=== PATIENT | male | born 1960 | race Caucasian/White ===

== ENCOUNTER 2023-01-23 01:41 | Inpatient (IN) | payer OTHER, SELFPAY ==
[2023-01-23] VITALS (11 sets, daily range): BP systolic 93–137; BP diastolic 58–87; PULSE 88–110; RESP 14–22; TEMP 36.7–37.4; O2SAT 93–98; BMI 22.4
--- NOTE | 2023-01-23 01:23 | ECG_ITS ---
APPROVED REPORT Exam: Resting ECG HR:95 bpm ECG Measurements Heart Rate 95 AXES QRSd 87 QRS 89 QT 400 T 66 QTc 453 Conclusion ATRIAL FIBRILLATION ABNORMAL RHYTHM ECG UNCONFIRMED REPORT Electronically signed by : Manolo Mccormick MD 01/23/2023 08:26:41
--- NOTE | 2023-01-23 02:16 | EXP.HP ---
History of Present Illness *Admission Date: 01/23/23 *Reason for visit:: n/v *History of present illness: Patient is a 62 years old male with past medical history of tobacco abuse hypertension, alcohol use disorder, recently discharged from [place] at [place], alcohol detoxification. Since then patient relapsed into a 5 heart rate with daily, 1 to 2 days ago when he started nonbloody vomiting associated with retrosternal burning pain. History limited, since patient is a poor historian, by report patient was brought to [facility] ER by EMS after found him vomiting at home. Upon arrival patient underwent to extensive workup including lab work. Critical value of troponin reported. Patient improved from the vomiting standpoint. However, close elevated white count likely of 17 and 2 abnormal troponin. Cardiology was consulted. And transferred requested to our services for evaluation. [facility] Disclaimer: The information contained in this section may have been updated after the patient was seen, as this information can be updated by other users. Medical History (Updated 01/23/23 @ 18:20 by Chemo Quintanilla MD) Alcoholism Ankle fracture Gout HLD (hyperlipidemia) HTN (hypertension) Orthostatic hypotension Vitamin deficiency Social History (Updated 01/23/23 @ 02:15 by Willa Samson RN) Smoking Status: Never smoker alcohol intake: current current occupational status: retired Travel in the last 8 weeks: None Review of Systems Review of Systems Review of systems:: pertinent systems reviewed and negative unless documented below Meds Home Medications and Allergies Home Medications Medication Instructions Recorded Confirmed Type acetaminophen 325 mg tablet 325 mg PO Q6HP PRN Mild Pain 01/23/23 01/23/23 History (Scale Score 1-4) albuterol sulfate 90 mcg/actuation 2 inh inhalation Q6HP PRN 01/23/23 01/23/23 History breath activated powder inhaler Shortness Of Breath ascorbic acid (vitamin C) 250 mg 250 mg PO DAILY Vitamin deficiency 01/23/23 01/23/23 History tablet cetirizine 10 mg tablet 10 mg PO DAILY Allergy Symptoms 01/23/23 01/23/23 History cholecalciferol (vitamin D3) 25 25 mcg PO DAILY Supplement 01/23/23 01/23/23 History mcg (1,000 unit) tablet cyanocobalamin (vitamin B-12) 1,000 mcg PO DAILY Supplement 01/23/23 01/23/23 History 1,000 mcg tablet cyclobenzaprine 10 mg tablet 10 mg PO TIDP PRN Muscle spasms 01/23/23 01/23/23 History diclofenac sodium 1 % topical gel 2 g topical Q6HP PRN Pain 01/23/23 01/23/23 History ferrous sulfate 325 mg (65 mg 325 mg PO Q48H Supplement 01/23/23 01/23/23 History iron) tablet indomethacin 25 mg capsule 25 mg PO TID PRN Pain/inflammation 01/23/23 01/23/23 History magnesium oxide 420 mg tablet 420 mg PO BID Supplement 01/23/23 01/23/23 History omeprazole 20 mg capsule,delayed 20 mg PO DAILY Acid Reflux 01/23/23 01/23/23 History release thiamine HCl (vitamin B1) 100 mg 100 mg PO DAILY Supplement 01/23/23 01/23/23 History tablet trazodone 100 mg tablet 100 mg PO HSP PRN Sleep 01/23/23 01/23/23 History New Prescriptions to Start Prescriptions: Allergies Allergy/AdvReac Type Severity Reaction Status Date / Time acetaminophen Allergy Verified 01/23/23 04:06 [From Tylenol-Codeine] codeine Allergy Verified 01/23/23 04:06 [From Tylenol-Codeine] lisinopril Allergy Verified 01/23/23 04:03 Penicillins Allergy Verified 01/23/23 04:06 Exam Constitutional Constitutional: moderate distress and cooperative *Routine HEENT Exam Head: Present normocephalic and atraumatic Eye: Present EOMI and PERRL ENT: Present mucous membranes moist *Routine Neck Exam Neck: Present supple, full ROM and trachea midline *Routine Respiratory Exam Respiratory: Present normal respiratory effort, able to speak in complete sentences and symmetric chest movement *Routine Cardiovascular Exam Cardiovascular: Present RRR, Normal S1, Normal S2 and
--- NOTE | 2023-01-23 05:30 | PC.NURSE ---
Shift Summary: Pt AOx4, able to follow commands, standby assist. Denies any SOB, N/V, or chest pain. VSS, tolerating RA. Pt requiring multiple reeducation and explanations for NPO status. No acute events or issues at this time. Call light within reach, fall precautions implemented.
[2023-01-23 08:18] LABS: Basophils % 0.2 % (0.1-2.0); Hemoglobin 11.8 g/dL (14.1-18.0); Lymphocytes # 1.8 K/mm3 (0.7-4.5); Lymphocytes % 10.9 % (10-50); Mean Corpuscular Hemoglobin 33.5 pg (27.0-31.2); Mean Corpuscular Volume 104.7 fl (80-94); Mean Platelet Volume 9.8 fl (7.4-10.4); Monocytes # 0.9 K/mm3 (0.1-1.0); Monocytes % 5.6 % (1.7-9.3); Neutrophils # 13.4 K/mm3 (1.8-7.8); Neutrophils % 83.3 % (37.0-80.0); Platelet Count 118 K/mm3 (142-424); Red Blood Count 3.53 M/mm3 (4.60-6.20); Red Cell Distribution Width 16.9 % (11.5-17.5); White Blood Count 16.1 K/mm3 (4.8-10.8)
[2023-01-23 08:21] LABS: MANUAL DIFFERENTIAL MANUAL DIFFERENTIAL (MANUAL DIFF)
[2023-01-23 08:34] LABS: INR 1.24 (0.9-1.1); Prothrombin Time 13.2 seconds (10.1-12.5)
--- NOTE | 2023-01-23 08:46 | CA_ITS ---
APPROVED REPORT EXAM: Comprehensive 2D, Doppler, and color-flow Echocardiogram Marine Painter: STEPHANE Handley, RVS Ht: 5 ft 8 in Wt: 151lbs BSA: 1.81 BP: 98/70 mmHg Indications: Elevated troponin, ETOH abuse, NSTEMI 2D Dimensions Left Atrium 3.10 cm M: 3.0 - 4.0 LA Volume 64.70 mL LA Volume Index 35.929102 mL/m2 (M/F) 16-34 EF AP4 64.60 % GL Strain -18.1 % M-Mode Dimensions RVDd 2.25 cm (0.9-2.6) LA Diam 3.73 cm (1.9-4.0) LVDd 4.70 cm (3.5-5.7) LVDs 2.55 cm (3.5-5.7) IVSd 0.97 cm (0.6-1.1) PWd 0.84 cm (0.6-1.1) EF (Teich) 77.10% EPSs 0.71 cm FS 45.70% EDV (Teich) 102.40 mL ESV (Teich) 23.40 mL LV Diastology E Decel Time 63 (160-240 msec) E/A Ratio 1.29 MED A' 3.60 cm/s LAT A' 4.10 cm/s Aortic Valve CARLI Index 1.53 cm2/m2 AoV Peak Jonathon. 137.0 (50-130 cm/s) AO Peak GR. 7.50 mmHg AO Mean GR. 3.70 (<5 mmHg) AO VTI 22.8 (18-25 cm) CARLI (VTI) 2.85 (2.5-4.5 cm2) Mitral Valve MV A Velocity 83.0 (40-130 cm/s) E/A Ratio 1.29 Tricuspid Valve TR P. Velocity 285.00 cm/s RAP Estimate 10.00 mmHg RVSP 42.50 mmHg Left Ventricle The left ventricle is normal size. The left ventricular systolic function is normal. The left ventricular ejection fraction is within the normal range. There is normal left ventricular wall thickness. There is normal LV segmental wall motion. The left ventricular diastolic function is normal. LVEF is 55%. Right Ventricle The right ventricle is normal size. The right ventricular systolic function is normal. Atria The left atrium size is normal. The right atrium size is normal. There is no Doppler evidence of interatrial shunt. Aortic Valve The aortic valve is normal in structure. The aortic valve is trileaflet. There is no aortic valvular stenosis. No aortic regurgitation is present. Mitral Valve The mitral valve is normal in structure. No evidence of mitral valve stenosis. Mild mitral regurgitation. Tricuspid Valve The tricuspid valve leaflets are thin and pliable. Mild tricuspid regurgitation. RVSP is 30-35 mmHg. Pulmonic Valve The pulmonary valve is normal in structure. Trace pulmonic regurgitation. Great Vessels The aortic root is normal in size. The ascending aorta is normal in size. IVC is normal in size and collapses >50% with inspiration. Pericardium There is no pericardial effusion. Other Information Study Quality: Adequate Conclusion Normal biventricular systolic function. Mild MR, mild TR. RVSP 30-35 mmHg. Electronically signed by : Makenzie Sneed MD 01/23/2023 22:17:17
[2023-01-23 08:54] LABS: Troponin I 0.77 ng/ml (0.00-0.034)
[2023-01-23 09:08] LABS: Lymphocytes % 10 % (10-50); Monocytes % 8 % (2-9); Neutrophils % 79 % (42-76); Nucleated Red Blood Cells 3; Platelet Estimate Slight Decrease; Total Cells Counted 100
[2023-01-23 09:09] LABS: Chloride 100 mmol/L (98-107); RBC Morphology Normal; Sodium 137 mmol/L (136-145)
--- NOTE | 2023-01-23 09:09 | ECG_ITS ---
APPROVED REPORT Exam: Resting ECG HR:97 bpm ECG Measurements Heart Rate 97 AXES OH 159 P 261 QRSd 87 QRS 76 QT 384 T 76 QTc 438 Conclusion SINUS RHYTHM MODERATE ST DEPRESSION [0.05+ mV ST DEPRESSION] ABNORMAL ECG UNCONFIRMED REPORT Electronically signed by : Manolo Mccormick MD 01/24/2023 09:59:06
[2023-01-23 09:10] LABS: Potassium 3.6 mmoL/L (3.5-5.1)
[2023-01-23 09:12] LABS: Alanine Aminotransferase 48 U/L (12-78); Albumin Level 3.4 g/dl (3.5-5.0); Albumin/Globulin Ratio 1.4 (1.1-1.8); Alkaline Phosphatase 133 U/L (38-126); Anion Gap 14.6 mEq/L (5-15); Aspartate Amino Transferase 115 U/L (17-59); Bilirubin,Total 1.4 mg/dl (0.2-1.3); Blood Urea Nitrogen 9 mg/dl (9-20); Calcium 6.5 mg/dl (8.4-10.2); Carbon Dioxide 26 mmol/L (22.0-30.0); Creatinine Clearance Estimated 75 mL/min (50-200); Estimated Glomerular Filt Rate 86 ml/min (>60); GFR (African American) 103 ML/MIN (>60); Globulin 2.4 g/dL (1.3-3.2); Glucose 218 mg/dl (74-100); Total Protein,Serum 5.8 g/dl (6.3-8.2)
[2023-01-23 09:13] LABS: Magnesium 1.2 mg/dl (1.6-2.3)
--- NOTE | 2023-01-23 09:23 | PC.NURSE ---
Lab and US in room at present. Echo currently in progress
--- NOTE | 2023-01-23 09:26 | EXP.CARD.CON ---
History of Present Illness History of Present Illness Consult date: 01/23/23 Requesting physician: Chemo Quintanilla Chief complaint: Nausea vomiting diarrhea History of present illness: 62-year-old white male with past medical history of daily alcohol consumption reports drinks 1/5 of vodka daily and hypertension presented to [facility] emergency department with complaints of 3 days of nausea vomiting diarrhea and generalized weakness. Patient reports he was recently discharged from the [facility] in [place] out after alcohol detox. Upon presentation to [facility] patient had 2 elevated troponins and was sent [facility] for [facility]ology evaluation. This morning patient reports he has a burning sensation in his chest that feels like heartburn. Denies chest pressure, shortness of air or lower extremity edema. Morning labs as follow: WBC 16.1, hemoglobin 11.8, platelet count 118, sodium 137, potassium 3.6, creatinine 0.9, magnesium 1.2, total bili 1.4, AST 115, ALT 48, alk phos 133. First troponin 0.77. EKG is currently sinus tach at a rate of 95 without acute ischemic changes noted. Echocardiogram is pending. [facility] Disclaimer: The information contained in this section may have been updated after the patient was seen, as this information can be updated by other users. Medical History (Updated 01/23/23 @ 06:25 by [place] APRN) Alcoholism Ankle fracture Gout HLD (hyperlipidemia) HTN (hypertension) Orthostatic hypotension Vitamin deficiency Social History (Updated 01/23/23 @ 02:15 by Willa Samson RN) Smoking Status: Never smoker alcohol intake: current current occupational status: retired Travel in the last 8 weeks: None Review of Systems Review of Systems Review of systems:: pertinent systems reviewed and negative unless documented below Constitutional Constitutional: Reports weakness *Gastrointestinal Gastrointestinal: Reports vomiting Comments: Diarrhea *Neurologic Neurologic: Reports weakness Exam Data for Last 24 hours Vital signs and Labs for Last 24 Hours: Temp Pulse Resp BP Pulse Ox O2 Del Method 99.4 F 100 H 20 95/58 L 95 Room Air 01/23/23 08:00 01/23/23 06:00 01/23/23 06:00 01/23/23 06:00 01/23/23 06:00 01/23/23 06:45 Laboratory Results - last 24 hr 01/23/23 06:55: Troponin I 0.77 H 01/23/23 07:46: WBC 16.1 H, RBC 3.53 L, Hgb 11.8 L, Hct 37.0 L, MCV 104.7 H, MCH 33.5 H, MCHC 32.0, RDW 16.9, Plt Count 118 L, MPV 9.8, Neut % (Auto) 83.3 H, Lymph % (Auto) 10.9, [place] % (Auto) 5.6, Eos % (Auto) 0.0 L, Baso % (Auto) 0.2, Neut # (Auto) 13.4 H, Lymph # (Auto) 1.8, [place] # (Auto) 0.9, Eos # (Auto) 0.0, Baso # (Auto) 0.0, Total Counted 100, Neutrophils % (Manual) 79 H, Lymphocytes % (Manual) 10, Monocytes % (Manual) 8, Metamyelocytes % 3.0 H, Nucleated RBCs 3, Platelet Estimate Slight decrease, RBC Morphology Normal, PT 13.2 H, INR 1.24 H, Sodium 137, Potassium 3.6, Chloride 100, Carbon Dioxide 26, Anion Gap 14.6, BUN 9, Creatinine 0.90, Estimated Creat Clear 75, Estimated GFR 86, Est GFR ( Amer) 103, Glucose 218 H, Calcium 6.5 L, Magnesium 1.2 L, Total Bilirubin 1.4 H, AST 115 H, ALT 48, Alkaline Phosphatase 133 H, Total Protein 5.8 L, Albumin 3.4 L, Globulin 2.4, Albumin/Globulin Ratio 1.4 I & O for Last 24 hours: Intake & Output 01/20/23 01/21/23 01/22/23 01/23/23 23:59 23:59 23:59 23:59 Intake Total 0 / 0 Output Total 0 / 0 Balance 0 / 0 Weight 151 lb 14.376 oz Constitutional Constitutional: no acute distress *Routine Respiratory Exam Respiratory: Present CTA bilaterally and symmetric chest movement *Routine Cardiovascular Exam Cardiovascular: Present RRR, Normal S1 and Normal S2 *Routine Abdominal Exam Abdominal: Present soft and normoactive bowel sounds; Absent tenderness *Routine Extremities Exam Extremities: Present full ROM and normal capillary refill; Absent edema *Routine Skin Exam Skin: Present
--- NOTE | 2023-01-23 09:53 | HMH.PHAINT1 ---
Pharmacy Intervention Comments: MEDICATION RECONCILIATION COMPLETED ON PATIENT USING LIST FROM [place] AND PATIENT INTERVIEW. [place]S FROM [facility] ARE [place]IST[place] , HOWEVER UPON INTERVIEW PATIENT STATES HE TAKES THESE MEDICATIONS. PATIENT STATED THAT HE HAS A HUGE BOX OF MEDICATIONS THAT HE RECEIVES THROUGH THE MAIL FROM THE [place]. -SKY DEAN, CARLOS
[2023-01-23 11:12] LABS: Troponin I 0.87 ng/ml (0.00-0.034)
[2023-01-23 12:38] LABS: Hemoglobin A1C 4.7 % (4.0-6.0)
[2023-01-23 14:33] LABS: Reflex Lactic Add Lactic Reflex
--- NOTE | 2023-01-23 15:07 | CARE MANAGER ---
Spoke with [place] transfer office this morning and confirmed no bed availability. Spoke with patient's PCP's nurse at [place] this afternoon regarding appointment with cardiology. Patient will likely have to see PCP first, but sent some clinical information in order to hopefully get patient into cardiology quicker. He states he will schedule appointment and contact patient but cannot guarantee when appointments will be. AJ Kyle
[2023-01-23 15:27] LABS: Lactic Acid Follow Up (RFLX 1) 4.2 mmol/L (0.7-2.1)
[2023-01-23 17:09] LABS: Reflex Lactic (2 hrs) Add Lactic Reflex
[2023-01-23 18:09] LABS: Lactic Acid Follow up (RFLX 2) 4.7 mmol/L (0.7-2.1)
--- NOTE | 2023-01-23 18:19 | EXP.SEPSISRE ---
[facility] Tissue Perfusion Eval Sepsis Re-Evaluation Performed: Yes Date Performed: 01/23/23 Time Performed: 07:30
--- NOTE | 2023-01-23 19:00 | PC.NURSE ---
Dr. Quintanilla notified of lactate increasing. Patient has no clinical symptoms of decline, or worseing of illness. Dr. Quintanilla requested to stop lactate serial lab in less patient had a clinical change. Lab notified.
[2023-01-24] VITALS (12 sets, daily range): BP systolic 90–132; BP diastolic 62–89; PULSE 73–107; RESP 16–22; TEMP 36.6–37.2; O2SAT 90–97; BMI 22.7
--- NOTE | 2023-01-24 05:11 | PC.NURSE ---
Patient has rested well this shift with no c/o nausea or diarrhea. Patients lungs are clear to auscultation, respirations are even and unlabored, oxygen has maintained > 90% on room air. Bowel sounds active X 4. No c/o pain or discomfort. Patient has been sinus rhythm on tele, vitals have been stable. LR fluids remain infusing at 125 ml/hr no s/sx of IV complications. Patient is able to ambulate to bathroom independently. Call loza, water pitcher, personal belongings and bed side table all with in reach.
[2023-01-24 12:42] LABS: Basophils % 0.1 % (0.1-2.0); Eosinophils % 0.2 % (0.1-12.0); Hematocrit 35.8 % (42.0-52.0); Hemoglobin 11.8 g/dL (14.1-18.0); Lymphocytes # 2.2 K/mm3 (0.7-4.5); Lymphocytes % 20.4 % (10-50); Mean Corpuscular HGB Conc 32.9 g/dL (31.8-35.4); Mean Corpuscular Hemoglobin 33.9 pg (27.0-31.2); Mean Corpuscular Volume 103.2 fl (80-94); Mean Platelet Volume 10.6 fl (7.4-10.4); Monocytes # 0.4 K/mm3 (0.1-1.0); Neutrophils # 8.2 K/mm3 (1.8-7.8); Neutrophils % 75.3 % (37.0-80.0); Platelet Count 83 K/mm3 (142-424); Red Blood Count 3.47 M/mm3 (4.60-6.20); Red Cell Distribution Width 17.2 % (11.5-17.5); White Blood Count 10.9 K/mm3 (4.8-10.8)
[2023-01-24 12:48] LABS: Chloride 102 mmol/L (98-107)
[2023-01-24 12:49] LABS: Sodium 138 mmol/L (136-145)
[2023-01-24 12:51] LABS: Alanine Aminotransferase 44 U/L (12-78); Aspartate Amino Transferase 110 U/L (17-59); Blood Urea Nitrogen 4 mg/dl (9-20); Creatinine Clearance Estimated 76 mL/min (50-200); Estimated Glomerular Filt Rate 114 ml/min (>60); GFR (African American) 138 ML/MIN (>60)
[2023-01-24 12:52] LABS: Albumin/Globulin Ratio 1.2 (1.1-1.8); Alkaline Phosphatase 113 U/L (38-126); Bilirubin,Total 1.1 mg/dl (0.2-1.3); Calcium 7.3 mg/dl (8.4-10.2); Carbon Dioxide 32 mmol/L (22.0-30.0); Globulin 2.5 g/dL (1.3-3.2); Glucose 113 mg/dl (74-100); Magnesium 1.4 mg/dl (1.6-2.3); Total Protein,Serum 5.5 g/dl (6.3-8.2)
[2023-01-24 12:53] LABS: Anion Gap 7.2 mEq/L (5-15); Potassium 3.2 mmoL/L (3.5-5.1)
--- NOTE | 2023-01-24 15:22 | PC.NURSE ---
Pt has appeared to have had a good day and was able to rest in his room. he is alert and oriented x 3. slightly confused as to the length of his stay. pt is insistent that he has been at [facility] for 4 days. pt calls for assistance to the restroom appropriately. lungs are clear throughout, bowel sounds are active in all quads. pt denies chest pain at this time and denies having had any chest pain this shift thus far. nad noted. pt ambulates with standby of 1 person r/t iv pole.
[2023-01-25] VITALS (11 sets, daily range): BP systolic 109–135; BP diastolic 71–94; PULSE 72–104; RESP 16–22; TEMP 36.4–36.7; O2SAT 96–99; BMI 22.7
--- NOTE | 2023-01-25 06:25 | PC.NURSE ---
Patient has used the restroom multiple times this shift. Patient would request for IV to be paused and unhooked d/t location of IV. Staff called and notified me while in the room waiting for patient to finish using the restroom, that patients heart rate is in the 130's. Patient assessed at time when notified via staff. Patient denied SOB, Chest Pain or notable palpitations. Non-pitting edema noted to RLE. Patient stated to typewriter repairer that he has urinated more tonight then he ever has. Patient continues to state that his RLE looks much better and not so swollen .
[2023-01-25 07:42] LABS: Chloride 104 mmol/L (98-107); Sodium 139 mmol/L (136-145)
[2023-01-25 07:45] LABS: Alanine Aminotransferase 33 U/L (12-78); Albumin Level 2.7 g/dl (3.5-5.0); Albumin/Globulin Ratio 1.1 (1.1-1.8); Alkaline Phosphatase 109 U/L (38-126); Aspartate Amino Transferase 114 U/L (17-59); Bilirubin,Total 0.9 mg/dl (0.2-1.3); Blood Urea Nitrogen 4 mg/dl (9-20); Carbon Dioxide 34 mmol/L (22.0-30.0); Creatinine Clearance Estimated 76 mL/min (50-200); Estimated Glomerular Filt Rate 137 ml/min (>60); GFR (African American) 165 ML/MIN (>60); Globulin 2.4 g/dL (1.3-3.2); Glucose 79 mg/dl (74-100); Total Protein,Serum 5.1 g/dl (6.3-8.2)
[2023-01-25 07:46] LABS: Calcium 7.1 mg/dl (8.4-10.2)
[2023-01-25 07:56] LABS: Anion Gap 3.6 mEq/L (5-15); Potassium 2.6 mmoL/L (3.5-5.1)
[2023-01-25 09:08] LABS: Basophils % 0.3 % (0.1-2.0); Eosinophils # 0.1 K/mm3 (0.0-0.4); Eosinophils % 0.7 % (0.1-12.0); Hematocrit 31.6 % (42.0-52.0); Hemoglobin 10.7 g/dL (14.1-18.0); Lymphocytes # 2.1 K/mm3 (0.7-4.5); Lymphocytes % 29.7 % (10-50); Mean Corpuscular HGB Conc 33.9 g/dL (31.8-35.4); Mean Corpuscular Hemoglobin 34.8 pg (27.0-31.2); Mean Corpuscular Volume 102.7 fl (80-94); Monocytes # 0.3 K/mm3 (0.1-1.0); Monocytes % 3.8 % (1.7-9.3); Neutrophils # 4.7 K/mm3 (1.8-7.8); Neutrophils % 65.6 % (37.0-80.0); Platelet Count 64 K/mm3 (142-424); Red Blood Count 3.08 M/mm3 (4.60-6.20); Red Cell Distribution Width 16.8 % (11.5-17.5); White Blood Count 7.2 K/mm3 (4.8-10.8)
--- NOTE | 2023-01-25 09:48 | PC.NURSE ---
Late entry- 0945 notified by presiding steward pt HR in 130s, this RN in room with different pt at this time, paged another nurse to check on pt, AJ Laboy went in and pt was confused, could only tell name and date of . AJ Laboy paged , came to bedside to assess, new orders received and carried out.
--- NOTE | 2023-01-25 09:55 | CT_ITS ---
PROCEDURE INFORMATION: Exam: CT Head Without Contrast Exam date and time: 01/25/2023 12:01 PM Age: 62 years old Clinical indication: Altered mental status/memory loss; Additional info: Transient confusion TECHNIQUE: Imaging protocol: Computed tomography of the head without contrast. Radiation optimization: All CT scans at this facility use at least one of these dose optimization techniques: automated exposure control; mA and/or kV adjustment per patient size (includes targeted exams where dose is matched to clinical indication); or iterative reconstruction. REPORTING DATA: Count of CT and Cardiac NM exams in prior 12 months: This patient has received 0 known CTs and 0 known cardiac nuclear medicine studies in the 12 months prior to the current study. COMPARISON: No relevant prior studies available. FINDINGS: Brain: There is no evidence of acute intracranial hemorrhage, extra-axial collection or locoregional mass effect. There are scattered hypodensities in the periventricular and subcortical white matter. The appearance is nonspecific, but most likely represents chronic small vessel disease in a person of this age Cerebral ventricles: The ventricles, sulci and cisterns are normal in size and configuration. No hydrocephalus or midline structure shift Pituitary gland and sella: Sellar/parasellar structures, craniocervical junction and orbits are unremarkable Paranasal sinuses: Visualized sinuses are unremarkable. No fluid levels. Mastoid air cells: Visualized mastoid air cells are well aerated. Bones/joints: No calvarial fracture Soft tissues: Unremarkable. IMPRESSION: 1. No acute intracranial abnormality. No calvarial fracture. 2. If focal neurological symptoms persist brain MRI can be obtained for better evaluation
[2023-01-25 10:50] LABS: Troponin I 0.07 ng/ml (0.00-0.034)
[2023-01-25 10:51] LABS: Lactic Acid 3.8 mmol/L (0.7-2.1)
[2023-01-25 12:41] LABS: Appearance,Urine CLEAR (Clear); Bilirubin,Urine Negative (Negative); Blood, Urine Negative (Negative); Color,Urine YELLOW (Yellow); Glucose,Urine (UA) Negative (Negative); Ketones,Urine Negative (Negative); Leukocyte Esterase,Urine Negative (Negative); Nitrate,Urine Negative (Negative); Protein,Urine Negative (Negative); Specific Gravity, Urine 1.015 (1.005-1.030); Urobilinogen,Urine 0.2 EU/dl (0.2)
[2023-01-25 12:43] LABS: Microscopic, Urine URINE MICROSCOPIC (MICROSCOPIC)
[2023-01-25 12:44] LABS: Squamous Epithelial Cell,Urine Occasional #/hpf (0-5); WBC,Urine Occasional #/hpf (0-3)
--- NOTE | 2023-01-25 14:05 | ECG_ITS ---
APPROVED REPORT Exam: Resting ECG HR:112 bpm ECG Measurements Heart Rate 112 AXES [place] 153 P 26 QRSd 93 QRS 84 QT 360 T 57 QTc 426 Conclusion SINUS TACHYCARDIA ABNORMAL RHYTHM ECG UNCONFIRMED REPORT Electronically signed by : Manolo Mccormick MD 01/26/2023 19:19:24
--- NOTE | 2023-01-25 14:08 | PC.NURSE ---
Called by fish warden at 1352 pt HRs in 120s. Walked in room, pt only alert to name and birthday, pt could not state where he was. Pt trying to get out of bed, ask pt to sit back in bed. Paged Brittany ROCHA to come and assess pt. Pt was diaphoretic, mouth twitching, and pale. Pt could not express what he needed and not speaking clearly. MD mariana MD to bedside, new orders received and carried out. Bed alarm on, seizures pads in place.
[2023-01-25 14:42] LABS: Reflex Lactic Add Lactic Reflex
[2023-01-25 15:32] LABS: Lactic Acid Follow Up (RFLX 1) 2.5 mmol/L (0.7-2.1)
--- NOTE | 2023-01-25 15:37 | EXP.PN ---
Subjective *Date: 01/24/23 *Time: 15:37 Exam Data for Last 24 hours Vital signs and Labs for Last 24 Hours: Temp Pulse Resp BP Pulse Ox O2 Del Method 98.1 F 104 H 18 134/71 96 Room Air 01/25/23 15:15 01/25/23 15:15 01/25/23 15:15 01/25/23 15:15 01/25/23 15:15 01/25/23 15:15 Laboratory Results - last 24 hr 01/25/23 06:40: WBC 7.2 D, RBC 3.08 L, Hgb 10.7 L, Hct 31.6 L, MCV 102.7 H, MCH 34.8 H, MCHC 33.9, RDW 16.8, Plt Count 64 L, MPV 10.0, Neut % (Auto) 65.6, Lymph % (Auto) 29.7, [place] % (Auto) 3.8, Eos % (Auto) 0.7, Baso % (Auto) 0.3, Neut # (Auto) 4.7, Lymph # (Auto) 2.1, [place] # (Auto) 0.3, Eos # (Auto) 0.1, Baso # (Auto) 0.0, Sodium 139, Potassium 2.6 L*, Chloride 104, Carbon Dioxide 34 H, Anion Gap 3.6 L, BUN 4 L, Creatinine 0.60 L, Estimated Creat Clear 76, Estimated GFR 137, Est GFR ( Amer) 165, Glucose 79 D, Calcium 7.1 L, Total Bilirubin 0.9, AST 114 H, ALT 33, Alkaline Phosphatase 109, Total Protein 5.1 L, Albumin 2.7 L, Globulin 2.4, Albumin/Globulin Ratio 1.1 01/25/23 10:18: Lactate 3.8 H, Troponin I 0.07 H 01/25/23 12:44: Urine Color Yellow, Urine Appearance Clear, Urine pH 8.0, Ur Specific Ledbetter 1.015, Urine Protein Negative, Urine Glucose (UA) Negative, Urine Ketones Negative, Urine Blood Negative, Urine Nitrate Negative, Urine Bilirubin Negative, Urine Urobilinogen 0.2, Ur Leukocyte Esterase Negative, Urine RBC None, Urine WBC Occasional, Ur Squamous Epith Cells Occasional, Urine Bacteria None 01/25/23 15:00: Lactate 2.5 H I & O for Last 24 hours: Intake & Output 12/07/23 12/08/23 12/09/23 12/10/23 23:59 23:59 23:59 23:59 Intake Total 1439 3828 / 4068 690 / 690 Output Total 0 / 0 1500 / 1500 200 / 200 Balance 1439 2328 / 2568 490 / 490 Weight 68.9 kg 69.717 kg 69.7 kg Assessment and Plan *Assessment and plan (1) Septic shock: Status: Acute Category: Medical Code(s): A41.9 - Sepsis, unspecified organism; R65.21 - Severe sepsis with septic shock (2) Elevated troponin: Status: Acute Category: Medical Code(s): R79.89 - Other specified abnormal findings of blood chemistry (3) Leukocytosis: Status: Acute Qualifiers: Leukocytosis type: unspecified Qualified Code(s): D72.829 - Elevated white blood cell count, unspecified Category: Medical Code(s): D72.829 - Elevated white blood cell count, unspecified (4) HTN (hypertension): Status: Acute Qualifiers: Hypertension type: unspecified Qualified Code(s): I10 - Essential (primary) hypertension Category: Medical Code(s): I10 - Essential (primary) hypertension (5) HLD (hyperlipidemia): Status: Acute Qualifiers: Hyperlipidemia type: unspecified Qualified Code(s): E78.5 - Hyperlipidemia, unspecified Category: Medical Code(s): E78.5 - Hyperlipidemia, unspecified (6) Gout: Status: Acute Qualifiers: Gout site: multiple sites Gout etiology: unspecified cause Chronicity: chronic Qualified Code(s): M1A.09X0 - Idiopathic chronic gout, multiple sites, without tophus (tophi) Category: Medical Code(s): M10.9 - Gout, unspecified (7) Alcoholism: Status: Acute Category: Medical Code(s): F10.20 - Alcohol dependence, uncomplicated Plan 62 years old male with past medical history of tobacco abuse hypertension, alcohol use disorder, recently discharged from [place] at [place], alcohol detoxification. Since then patient relapsed into a 5 heart rate with daily, 1 to 2 days ago when he started nonbloody vomiting associated with retrosternal burning pain. -Septic shock - improved -Elevated troponin to rule ACS: continue IV abx with levaquin -Leukocytosis: Unclear source of infection, clinical simple enteritis. CT of the abdomen reviewed. Findings are nonspecific for ileus. However symptomatically there is no support. Patient tolerating eating
--- NOTE | 2023-01-25 15:48 | EXP.PN ---
Subjective *Date: 01/25/23 *Time: 15:48 Interval history: patient was seen and evaluated at the bedside. he had starring episode x 2, and not responding to conversations. denies chest pain, shortness of breath, nausea, vomiting, abdominal pain. Exam Data for Last 24 hours Vital signs and Labs for Last 24 Hours: Temp Pulse Resp BP Pulse Ox O2 Del Method 98.1 F 104 H 18 134/71 96 Room Air 01/25/23 15:15 01/25/23 15:15 01/25/23 15:15 01/25/23 15:15 01/25/23 15:15 01/25/23 15:15 Laboratory Results - last 24 hr 01/25/23 06:40: WBC 7.2 D, RBC 3.08 L, Hgb 10.7 L, Hct 31.6 L, MCV 102.7 H, MCH 34.8 H, MCHC 33.9, RDW 16.8, Plt Count 64 L, MPV 10.0, Neut % (Auto) 65.6, Lymph % (Auto) 29.7, Dewey % (Auto) 3.8, Eos % (Auto) 0.7, Baso % (Auto) 0.3, Neut # (Auto) 4.7, Lymph # (Auto) 2.1, Dewey # (Auto) 0.3, Eos # (Auto) 0.1, Baso # (Auto) 0.0, Sodium 139, Potassium 2.6 L*, Chloride 104, Carbon Dioxide 34 H, Anion Gap 3.6 L, BUN 4 L, Creatinine 0.60 L, Estimated Creat Clear 76, Estimated GFR 137, Est GFR ( Amer) 165, Glucose 79 D, Calcium 7.1 L, Total Bilirubin 0.9, AST 114 H, ALT 33, Alkaline Phosphatase 109, Total Protein 5.1 L, Albumin 2.7 L, Globulin 2.4, Albumin/Globulin Ratio 1.1 01/25/23 10:18: Lactate 3.8 H, Troponin I 0.07 H 01/25/23 12:44: Urine Color Yellow, Urine Appearance Clear, Urine pH 8.0, Ur Specific [place] 1.015, Urine Protein Negative, Urine Glucose (UA) Negative, Urine Ketones Negative, Urine Blood Negative, Urine Nitrate Negative, Urine Bilirubin Negative, Urine Urobilinogen 0.2, Ur Leukocyte Esterase Negative, Urine RBC None, Urine WBC Occasional, Ur Squamous Epith Cells Occasional, Urine Bacteria None 01/25/23 15:00: Lactate 2.5 H I & O for Last 24 hours: Intake & Output 01/22/23 01/23/23 01/24/23 01/25/23 23:59 23:59 23:59 23:59 Intake Total 1439 3828 / 4068 690 / 690 Output Total 0 / 0 1500 / 1500 200 / 200 Balance 1439 2328 / 2568 490 / 490 Weight 68.9 kg 69.717 kg 69.7 kg Constitutional Constitutional: no acute distress *Routine HEENT Exam Head: Present normocephalic Eye: Present EOMI and PERRL ENT: Present mucous membranes moist *Routine Neck Exam Neck: Present supple; Absent lymphadenopathy *Routine Respiratory Exam Respiratory: Present CTA bilaterally *Routine Cardiovascular Exam Cardiovascular: Present RRR *Routine Abdominal Exam Abdominal: Present soft and normoactive bowel sounds; Absent tenderness *Routine Extremities Exam Extremities: Absent cyanosis, clubbing or edema *Routine Skin Exam Skin: Present warm; Absent rash *Routine Neurological Exam Neurological: Present alert and oriented X3 Assessment and Plan *Assessment and plan (1) Septic shock: Status: Acute Category: Medical Code(s): A41.9 - Sepsis, unspecified organism; R65.21 - Severe sepsis with septic shock (2) Elevated troponin: Status: Acute Category: Medical Code(s): R79.89 - Other specified abnormal findings of blood chemistry (3) Leukocytosis: Status: Acute Qualifiers: Leukocytosis type: unspecified Qualified Code(s): D72.829 - Elevated white blood cell count, unspecified Category: Medical Code(s): D72.829 - Elevated white blood cell count, unspecified (4) HTN (hypertension): Status: Acute Qualifiers: Hypertension type: unspecified Qualified Code(s): I10 - Essential (primary) hypertension Category: Medical Code(s): I10 - Essential (primary) hypertension (5) HLD (hyperlipidemia): Status: Acute Qualifiers: Hyperlipidemia type: unspecified Qualified Code(s): E78.5 - Hyperlipidemia, unspecified Category: Medical Code(s): E78.5 - Hyperlipidemia, unspecified (6) Gout: Status: Acute Qualifiers: Gout site: multiple sites Gout etiology: unspecified cause Chronicity: chronic Qualified Code(s): M1A.09X0 - Idiopathic chronic gout, m
[2023-01-25 15:54] LABS: Troponin I 0.06 ng/ml (0.00-0.034)
--- NOTE | 2023-01-25 16:54 | PC.NURSE ---
Rapid Response called at this time
[2023-01-25 17:15] LABS: Reflex Lactic (2 hrs) Add Lactic Reflex
--- NOTE | 2023-01-25 17:20 | PC.NURSE ---
paged michele for a loading dose of keppra per mjeed. per vamshi admin 1500mg loading dose in 100ml bad ns over 15 mins now, no need for drip after loading dose.
[2023-01-25 17:51] LABS: Creatine Kinase 63 U/L (55-170)
[2023-01-25 17:55] LABS: Lactic Acid 4.7 mmol/L (0.7-2.1)
--- NOTE | 2023-01-25 18:23 | CARE MANAGER ---
[facility] and no beds available for transfer. AJ Kyle
--- NOTE | 2023-01-25 19:17 | PC.NURSE ---
1649- pt bed alarm goes off, rn cherie walks in, this rn goes behind her, pt is trying to get out of bed, pt begins stiffening up and lays back into the bed, pt is unresponsive 1652- rapid response called, charge nurse present at bedside, 2L NC applied, mouth suctioned 1653- MD Cervantes, tracie, adolfo, eladio RT, zoey RT all present at bedside, pt rolled to left side 1655- orders for ativan 2mg and keppra received, ativan given, awaiting call from pharmacy for dose for keppra 1657- vitals obtained, BP 127/83, P 72, R 22, O2 96 on 2L 1699- Pt more responsive, but still lethargic, CK and lactic ordered 1701- pt noted to be asleep and snoring, pt left on continuous monitoring 1704- BP 109/75, P 88, R 22, O2 98 on 2L
--- NOTE | 2023-01-25 19:47 | PC.NURSE ---
report called to [facility] @ this time
--- NOTE | 2023-01-25 21:05 | PC.NURSE ---
EMS here for transport
--- NOTE | 2023-01-25 21:17 | PC.NURSE ---
Pt left 2nd floor with EMS personnel at this time.
--- NOTE | 2023-01-25 21:18 | PC.NURSE ---
pt transfered out to [facility] via ambulance @21:15
--- NOTE | 2023-01-25 21:24 | PC.NURSE ---
Patient left facility at 2115 via stretcher, patient is being transported to [facility] per order. [facility] Lab Technician spoke to daughter at time of patient being transferred from bed to stretcher. Family aware of patient being transferred to [facility]. Report given to EMS. [place] RN called report to RN at [facility].
--- NOTE | 2023-01-26 20:07 | EXP.DC.SUM ---
General Admission date:: 01/23/23 Discharge date: 01/25/23 HPI HPI HPI: Patient is a 62 years old male with past medical history of tobacco abuse hypertension, alcohol use disorder, recently discharged from [facility] at [facility], alcohol detoxification. Since then patient relapsed into a 5 heart rate with daily, 1 to 2 days ago when he started nonbloody vomiting associated with retrosternal burning pain. History limited, since patient is a poor historian, by report patient was brought to [facility] ER by EMS after found him vomiting at home. Upon arrival patient underwent to extensive workup including lab work. Critical value of troponin reported. Patient improved from the vomiting standpoint. However, close elevated white count likely of 17 and 2 abnormal troponin. Cardiology was consulted. And transferred requested to our services for evaluation. Hospital Course Hospital Course Hospital Course: Patient was seen and evaluated at the bedside on the day of discharge. Patient is stable for discharge. Patient wishes to be discharged. All patient questions were answered and patient was given time to ask questions. Patient was discharged in stable condition. Patient understands that she can return to ER in case of any sudden changes in health. Total time spent on DC - 38 mins 62 years old male with past medical history of tobacco abuse hypertension, alcohol use disorder, recently discharged from [facility] at [facility], alcohol detoxification. Since then patient relapsed into a 5 heart rate with daily, 1 to 2 days ago when he started nonbloody vomiting associated with retrosternal burning pain. -Septic shock - improved seizures appears to have absent seizures CT head negative seizure precuations will initiate transfer to neurology service facility -Hypertension hyperlipidemia: Resume home. Record requested from [facility]. -History of gout: On allopurinol. -Alcoholism: stable Full code. Lovenox for DVT prophylaxis. PPI for GI bleed prophylaxis Exam Data for Last 24 hours Vital signs and Labs for Last 24 Hours: Temp Pulse Resp BP Pulse Ox O2 Del Method O2 Flow Rate 97.5 F L 95 H 18 116/76 99 Room Air 2 01/25/23 20:00 01/25/23 20:00 01/25/23 20:00 01/25/23 20:00 01/25/23 20:00 01/25/23 21:00 01/25/23 19:00 I & O for Last 24 hours: Intake & Output 01/23/23 01/24/23 01/25/2323 23:59 23:59 23:59 23:59 Intake Total 1439 3828 / 4068 1524 / 1524 Output Total 0 / 0 1500 / 1500 350 / 350 Balance 1439 2328 / 2568 1174 / 1174 Weight 68.9 kg 69.717 kg 69.7 kg Microbiology Reports for the Last 24 Hours: Microbiology 01/23/23 10:24 Blood Blood Culture - Preliminary Constitutional Constitutional: no acute distress *Routine HEENT Exam Head: Present normocephalic Eye: Present EOMI and PERRL ENT: Present mucous membranes moist *Routine Neck Exam Neck: Present supple; Absent lymphadenopathy *Routine Respiratory Exam Respiratory: Present CTA bilaterally *Routine Cardiovascular Exam Cardiovascular: Present RRR *Routine Abdominal Exam Abdominal: Present soft and normoactive bowel sounds; Absent tenderness *Routine Extremities Exam Extremities: Absent cyanosis, clubbing or edema *Routine Skin Exam Skin: Present warm; Absent rash *Routine Neurological Exam Neurological: Present alert and oriented X3 Results Data Completed and Pending Labs on day of discharge: Preliminary micro results at discharge 01/23/23 10:24 Blood Culture - Preliminary Blood DS: Diagnosis Discharge Diagnosis (1) Septic shock: Status: Acute Code(s): A41.9 - Sepsis, unspecified organism; R65.21 - Severe sepsis with septic shock (2) Elevated troponin: Status: Acute Code(s): R79.89 - Other specified abnormal findings of blood chemistry (3) Leukocytosis: Status: Acute Code(s): D72.829 - Elevated white blood cell count, unspecified
== END 2023-01-25 21:15 | disposition short-term general hospital (02) | DRG 871 ==
PROVIDERS: Internal Medicine; Nurse Practitioner Family; Admitting Provider Internal Medicine Adolescent Medicine; Visit Provider Internal Medicine Adolescent Medicine
DX: A41.9 Sepsis, unspecified organism (principal); R65.21 Severe sepsis with septic shock; I10 Essential (primary) hypertension; E78.5 Hyperlipidemia, unspecified; M1A.09X0 Idiopathic chronic gout, multiple sites, without tophus (tophi); F10.20 Alcohol dependence, uncomplicated; E55.9 Vitamin D deficiency, unspecified; G40.A09 Absence epileptic syndrome, not intractable, without status epilepticus; R79.89 Other specified abnormal findings of blood chemistry
CPT/HCPCS: 36415; 70450; 80053; 81001; 82550; 83036; 83605; 83735; 84484; 85007; 85025; 85610; 87040; 93005; 93306; J1953; J1956; J2405; J3475